=== PATIENT | female | born 1990 | race Two or more races ===

== ENCOUNTER 2020-03-10 18:23 | Emergency (ER) | payer MEDICAID ==
[2020-03-10] MEDS ORDERED: Ondansetron 4 MG/2 ML SDV IVPUSH ONE (18:49)
[2020-03-10] MEDS ORDERED: Sodium Chloride 0.9% 1,000 ML IV STA (18:49)
[2020-03-10] MEDS ORDERED: Ketorolac 30 MG/ML SDV IVPUSH ONE (18:49)
--- NOTE | 2020-03-10 20:27 | EDM.PDOC ---
ED HPI GENERAL MEDICAL PROBLEM - General Chief Complaint: Headache Stated Complaint: HEADACHE AND DIFFICULTY BREATHING Time Seen by Provider: 03/10/20 18:34 Source of Information: Reports: Patient, RN Notes Reviewed History Limitations: Reports: No Limitations - History of Present Illness INITIAL COMMENTS - FREE TEXT/NARRATIVE: Patient is a 29-year-old female presenting to the emergency department with complaints of severe headache that began earlier today. She also states that she had a syncopal episode at home. She describes the pain as a sharp stabbing pain in her middle upper head. She feels nauseous with this but has had no vomiting. Denies light sensitivity. She states that she was walking to plug her phone and her charge. The next thing she remembers was her son waking her up and she was lying on the floor. She states that the headache was present prior to the syncopal episode. She denies any dizziness or vision changes. She has no history of migraines, however she does get intermittent headaches, but states this is much more severe than she has ever had in the past. Denies any recent head injuries or trauma. She has taken Tylenol for pain today with little relief. 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 Denies: Fever, Chills, Weakness HEENT: Reports: No Symptoms Respiratory: Reports: No Symptoms. Denies: Shortness of Breath, Cough Cardiovascular: Reports: No Symptoms. Denies: Chest Pain, Dyspnea on Exertion, Lightheadedness Endocrine: Reports: No Symptoms GI/Abdominal: Reports: No Symptoms : Reports: No Symptoms Musculoskeletal: Reports: No Symptoms Skin: Reports: No Symptoms Neurological: Reports: Headache, Syncope. Denies: Confusion, Dizziness, Numbness, Paresthesia, Seizure, Tingling, Trouble Speaking, Difficulty Walking Psychiatric: Reports: No Symptoms Hematologic/Lymphatic: Reports: No Symptoms Immunologic: Reports: No Symptoms - Physical Exam Exam: See Below Exam Limited By: No Limitations General Appearance: Alert, Mild Distress Eye Exam: Bilateral Eye: PERRL Head Exam: Atraumatic, Normocephalic Neck: Normal Inspection, Supple, Non-Tender, Full Range of Motion Respiratory/Chest: No Respiratory Distress, Lungs Clear, Normal Breath Sounds, No Accessory Muscle Use, Chest Non-Tender Cardiovascular: Normal Peripheral Pulses, Regular Rate, Rhythm, No Edema, No Gallop, No JVD, No Murmur, No Rub GI/Abdominal: Normal Bowel Sounds, Soft, Non-Tender, No Organomegaly, No D istention, No Abnormal Bruit, No Mass Neuro Exam (Abbreviated): Alert, Oriented, CN II-XII Intact, Normal Cognition, Normal Gait, Normal Reflexes, No Motor/Sensory Deficits Psychiatric: Normal Affect, Normal Mood Skin Exam: Warm, Dry, Intact, Normal Color, No Rash Course - Vital Signs Last Recorded V/S: Last Vital Signs Temp 97.5 F 03/10/20 18:32 Pulse 64 03/10/20 18:32 Resp 12 03/10/20 18:32 BP 143/98 H 03/10/20 18:32 Pulse Ox 100 03/10/20 18:32 - Orders/Labs/Meds Orders: Active Orders 24 hr Category Date Time Status EKG Documentation Completion [RC] STAT Care 03/10/20 18:48 Active Head wo Cont [CT] Stat Exams 03/10/20 18:48 Taken Labs: Laboratory Tests 03/10/20 03/10/20 Range/Units 19:04 19:04 WBC 7.21 (3.98-10.04) K/mm3 RBC 4.43 (3.98-5.22) M/mm3 Hgb 12.7 (11.2-15.7) gm/dl Hct 39.2 (34.1-44.9) % MCV 88.5 (79.4-94.8) fl MCH 28.7 (25.6-32.2) pg MCHC 32.4 (32.2-35.5) g/dl RDW Std Deviation 41.5 (36.4-46.3) fL Plt Count 371 H (182-369) K/mm3 MPV 9.8 (9.4-12.3) fl Neut % (Auto) 53.0 (34.0-71.1) % Lymph % (Auto) 37.0 (19.3-51.7) % [place] % (Auto) 8.7 (4.7-12.5) % Eos % (Auto) 0.7 (0.7-5.8) Baso % (Auto) 0.3 (0.1-1.2) % Neut # (Auto) 3.82 (1.56-6.13) K/mm3 Lymph # (Auto) 2.67 (1.18-3.74) K/mm3 [place] # (Auto) 0.63 H (0.24-0.36) K/mm3 Eos # (Auto) 0.05 (0.04-0.36) K/mm3 Baso # (Auto) 0.02 (0.01-0.08) K/mm3 Sodium 141 (136-145) mEq/L Potassium 3.0 L (3.5-5.1) mEq/L Chloride 104 (98-107) mEq/L Carbon Dioxide 25 (21-32) mEq/L Anion Gap 15.0 (5-15) BUN 7 (7-18) mg/dL Creatinine 0.7 (0.55-1.02) mg/dL Est Cr Clr Drug Dosing 103.73 mL/min Estimated GFR (MDRD) > 60 (>60) mL/min BUN/Creatinine Ratio 10.0 L (14-18) Glucose 90 (74-106) mg/dL Calcium 8.7 (8.5-10.1) mg/dL Magnesium 2.2 (1.8-2.4) mg/dl Total Bilirubin 0.4 (0.2-1.0) mg/dL AST 13 L (15-37) U/L ALT 20 (14-59) U/L Alkaline Phosphatase 52 (46-116) U/L C-Reactive Protein < 0.2 (<1.0) mg/dL Total Protein 7.9 (6.4-8.2) g/dl Albumin 4.2 (3.4-5.0) g/dl Globulin 3.7 gm/dL Albumin/Globulin Ratio 1.1 (1-2) Meds: Medications Discontinued Medications Generic Name Dose Route Start Last Admin Trade Name Leola PRN Reason Stop Dose Admin Sodium Chloride 1,000 mls @ 999 mls/hr 03/10/20 18:49 03/10/20 19:06 Normal Saline IV 03/10/20 19:49 999 mls/hr NOW STA Administration Ketorolac Tromethamine 30 mg 03/10/20 18:49 03/10/20 19:07 Toradol IVPUSH 03/10/20 18:50 30 mg ONETIME ONE Administration Ondansetron HCl 4 mg 03/10/20 18:49 03/10/20 19:07 Zofran IVPUSH 03/10/20 18:50 4 mg ONETIME ONE Administration - Re-Assessments/Exams Free Text/Narrative Re-Assessment/Exam: Patient is a 29-year-old female presenting to the emergency department with complaints of excruciating headache as well as a syncopal episode earlier in the day. Symptoms began this morning. She is taken Tylenol with no real improvement. She denies any dizziness or vision changes. She does state that she had a syncopal episode earlier in the day. Denies any chest pain or shortness of breath. Denies any possibility of . Her exam is grossly unremarkable, however she does appear to be uncomfortable. I have ordered lab work including a CBC, CMP, CRP, magnesium. We will do a CT scan of her head. I have also ordered an EKG. I will give her 1 L bolus of normal saline, Zofran for nausea, and Toradol for pain. 03/10/20 20:27 Hematology was grossly unremarkable with exception of a potassium being slightly low at 3.0. CT scan of the head showed no hydrocephalus, acute intracranial hemorrhage, or mass-effect. EKG showed normal sinus rhythm at 58 with no acute abnormalities. Patient is feeling much better with the medications given. I will give her 40 mEq of oral potassium here in the emergency department. Recommend follow-up in the clinic with her primary care provider. Discharge instructions as documented. Departure - Departure Time of Disposition: 20:31 Disposition: Home, Self-Care 01 Condition: Good Clinical Impression: Headache Qualifiers: Headache type: unspecified Headache chronicity pattern: acute headache Intractability: not intractable Qualified Code(s): R51.9 - Headache, unspecified - Discharge Information *PRESCRIPTION DRUG MONITORING PROGRAM REVIEWED*: No *COPY OF PRESCRIPTION DRUG MONITORING REPORT IN PATIENT GABE: No Instructions: General Headache Without Cause, [id number] Referrals: PCP,None [Primary Care Provider] - Additional Instructions: You were seen in the emergency department for a headache with an associated syncopal episode. Your workup included blood work, an EKG of your heart, and a chest xray. The results of your workup were normal with the exception of your potassium being slightly low. While in the ER, your received IV fluids, Zofran for nausea, Toradol for pain, and a potassium replacement. You stated that your headache improved greatly with these medications. Recommend that you go home and rest. You may take tylenol or ibuprofen as needed for recurrence of pain. Recommend that you begin taking a daily potassium supplement. If you have recurrent headaches, I would recommend follow-up in the clinic with your primary care provider. Return to ER as needed. Sepsis Event Note (ED) - Evaluation Sepsis Screening Result: No Definite Risk - Focused Exam Vital Signs: Vital Signs Temp Pulse Resp BP Pulse Ox 03/10/20 18:32 97.5 F 64 12 143/98 H 100 - My Orders Last 24 Hours: My Active Orders 03/10/20 18:48 EKG Documentation Completion [RC] STAT Head wo Cont [CT] Stat - Assessment/Plan Last 24 Hours: My Active Orders 03/10/20 18:48 EKG Documentation Completion [RC] STAT Head wo Cont [CT] Stat
[2020-03-10] MEDS ORDERED: Potassium Chloride 20 MEQ Tab.ER PO ONE (20:28)
--- NOTE | 2020-03-11 09:01 | CT ---
PROCEDURE INFORMATION: Exam: CT Head Without Contrast Exam date and time: 03/10/2020 7:35 PM Age: 29 years old Clinical indication: Pain; Headache TECHNIQUE: Imaging protocol: Computed tomography of the head without contrast. COMPARISON: No relevant prior studies available. FINDINGS: Brain: No evidence for acute transcortical infarct. No mass effect or midline shift. No extra-axial collection. No acute intracranial hemorrhage. Basal cisterns are patent. Cerebral ventricles: No ventriculomegaly. Bones/joints: Unremarkable. No acute fracture. Paranasal sinuses: Visualized sinuses are unremarkable. No fluid levels. Mastoid air cells: Visualized mastoid air cells are well aerated. Soft tissues: Unremarkable. IMPRESSION: No hydrocephalus, acute intracranial hemorrhage, or mass effect. Thank you for allowing us to participate in the care of your patient. Dictated and Authenticated by: Todd Smith MD 03/10/2020 9:01 PM Central Time ([place] & [place]) [facility]OS[facility]
== END 2020-03-10 21:14 | disposition home or self-care (01) ==
LOC: JD.ED 18:23
DX: R51.9 Headache, unspecified (principal)
CPT/HCPCS: 36415; 70450; 80053; 83735; 85025; 86140; 93005; 96374; 96375; 99284; A9270; J1885; J2405; J7030; 93010